=== PATIENT | male | born 1980 | race Caucasian/White ===

== ENCOUNTER → 2018-03-08 | Outpatient (CLI) | payer OTHER ==
--- NOTE | 2018-03-08 17:50 | KCIC ---
THORACIC SPINE 3V, LUMBAR SPINE MIN 4V History: Thoracic spine pain. Bilateral leg numbness and tingling. Possible old T12 fracture. Chronic low back pain.. Comparison: None are available Three-view thoracic The upper vertebral bodies of the thoracic spine are poorly visualized on the lateral view. No evidence of vertebral body height loss. No significant subluxation. No paraspinal soft tissue swelling. Visualized lungs are clear. IMPRESSION: No acute findings at the thoracic spine 5 view lumbar spine There appear to be 5 lumbar type vertebral bodies. Moderate to severe anterior compression fracture of what is probably the L1 vertebral body. No evidence of linear condensation or acute cortical step-off to suggest that this is acute. Other vertebrae appear intact. Disc space narrowing compatible with degenerative spondylosis. No significant spondylolysis. No significant subluxation. IMPRESSION: Moderate to severe anterior compression fracture of L1 vertebral body. This is likely chronic. Electronically signed by: Mehrdad Bryant MD (03/08/2018 5:46 PM) [facility]
== END | disposition home or self-care (01) ==
LOC: KCIC 14:09
PROVIDERS: ATTEND Physician Assistant Medical
DX: S32.018A Other fracture of first lumbar vertebra, initial encounter for closed fracture (principal); X58.XXXA Exposure to other specified factors, initial encounter; Y93.89 Activity, other specified; Y92.89 Other specified places as the place of occurrence of the external cause; Y99.8 Other external cause status; M54.6 Pain in thoracic spine
CPT/HCPCS: 72072; 72110

== ENCOUNTER → 2019-02-09 | Outpatient (CLI) | payer OTHER ==
--- NOTE | 2019-02-09 16:29 | KCIC ---
3 view study of the right knee Clinical indications: Posterior right knee pain after injury. FINDINGS: No acute fracture or dislocation or lytic process is seen. No significant degenerative joint space narrowing or spurring is seen. No erosive arthropathy is evident. Small right knee joint effusion is seen. IMPRESSION: No acute osseous abnormality. Electronically signed by: Jose Alberto Betts MD (02/09/2019 4:26 PM) [facility]
== END | disposition home or self-care (01) ==
LOC: KCIC 15:39
PROVIDERS: ATTEND Physician Assistant Medical
DX: M25.461 Effusion, right knee (principal)
CPT/HCPCS: 73562

== ENCOUNTER → 2019-02-13 | Outpatient (CLI) | payer OTHER ==
--- NOTE | 2019-02-13 14:56 | KCIC ---
MR of the right knee HISTORY: Right knee pain. Possible ACL injury January 2018. Posterior and lateral pain. TECHNIQUE: Routine multiplanar sequences are obtained. FINDINGS: Tear of the posterior horn of the medial meniscus with a degenerative appearance. Tear of the posterior horn of the lateral meniscus. The free margin of the posterior horn is truncated. This could indicate a displaced fragment. The lateral meniscus is incompletely discoid. Tear of the anterior cruciate ligament. Pivot shift bone injuries with small subchondral marrow contusion of the lateral femoral condyle, and small fracture/contusions of the posterior tibial plateaus. Posterior cruciate ligament intact. There is some irregular hypointense signal within the anterior joint, likely represents torn ACL fibers. Less likely this could represent displaced meniscal tissue. Medial collateral ligament is intact. Iliotibial band unremarkable. Fibular collateral ligament, biceps femoris tendon and popliteus tendon are intact. The extensor mechanism is intact. Large joint effusion. Focal, at least 50% deep, chondral defect at the femoral trochlea measuring about 6 mm diameter. Cartilage thinning at the posterior lateral tibial plateau. Chondromalacia at the medial joint compartment. Small Lugo's cyst. Irregular signal identified within the cyst compatible with debris or synovitis, or blood product. There is some disorganized fluid dissecting above below this cyst likely due to a rupture. IMPRESSION: 1. Medial meniscal tear. 2. Lateral meniscal tear. 3. Anterior cruciate ligament tear with Pivot shift bone injuries. 4. Irregular hypointense material within the anterior knee, likely represents torn ACL fibers, but displaced meniscal or chondral fragment could also be considered. 5. Articular cartilage defect at the lower femoral trochlea. 6. Complex Lugo's cyst with evidence of rupture. Electronically signed by: Mehrdad Bryant MD (02/13/2019 2:53 PM) [facility]
== END | disposition home or self-care (01) ==
LOC: KCIC MRI 13:54
PROVIDERS: ATTEND Physician Assistant Medical
DX: S83.241A Other tear of medial meniscus, current injury, right knee, initial encounter (principal); S83.281A Other tear of lateral meniscus, current injury, right knee, initial encounter; S83.511A Sprain of anterior cruciate ligament of right knee, initial encounter; S80.01XA Contusion of right knee, initial encounter; M71.21 Synovial cyst of popliteal space [Baker], right knee; M94.261 Chondromalacia, right knee; M25.461 Effusion, right knee; X58.XXXA Exposure to other specified factors, initial encounter; Y93.89 Activity, other specified; Y92.89 Other specified places as the place of occurrence of the external cause; Y99.8 Other external cause status
CPT/HCPCS: 73721

== ENCOUNTER → 2019-08-03 | Outpatient (CLI) | payer OTHER ==
--- NOTE | 2019-08-03 09:41 | CARD ---
MR#: [id number] Date of Study: 08/03/2019 Ordering Physician: NANCY GAN, Referring Physician: NANCY GAN, Tech: Smitha Goodwin JUAN APPROVED REPORT EXAM: Two-dimensional and M-mode echocardiogram with Doppler and color Doppler. Other Information Quality : Good INDICATION Hypertension/HCVD RISK FACTORS Hypertension 2D DIMENSIONS RVDd2.9 (2.9-3.5cm)Left Atrium(2D)3.6 (1.6-4.0cm) IVSd1.4 (0.7-1.1cm)Aortic Root(2D)3.2 (2.0-3.7cm) LVDd4.7 (3.9-5.9cm)LVOT Diameter2.1 (1.8-2.4cm) PWd1.4 (0.7-1.1cm)LVDs3.0 (2.5-4.0cm) FS (%) 35.8 %SV68.1 ml LVEF(%)60.0 (>50%) Aortic Valve AoV Peak Shimon.112.8cm/sAoV VTI19.4cm AO Peak GR.5.1mmHgLVOT Peak Shimon.86.7cm/s AO Mean GR.3mmHgAVA (VMAX)2.65cm2 BRAN (VTI)2.21cl8FD P 1/2 [id number] Mitral Valve MV E Snlzhvvb36.0cm/sMV DECEL VKSH513ms MV A Ksrszkhn88.4cm/sE/A Ratio1.9 Pulmonary Vein S1 Gyknzbpf93.2cm/sD2 Cabxuujp20.0cm/s LEFT VENTRICLE The left ventricle is normal size. There is mild concentric left ventricular hypertrophy. The left ve ntricular systolic function is normal and the ejection fraction is within normal range. The Ejection Fraction is 60-65%. There is normal LV segmental wall motion. The left ventricular diastolic function and filling is normal for age. RIGHT VENTRICLE The right ventricle is normal size. The right ventricular systolic function is normal. ATRIA The left atrium size is normal. The right atrium size is normal. The interatrial septum is intact wit h no evidence for an atrial septal defect or patent foramen ovale as noted on 2-D or Doppler imaging. AORTIC VALVE The aortic valve is normal in structure and function. Doppler and Color Flow revealed mild aortic reg urgitation. There is no significant aortic valvular stenosis. MITRAL VALVE The mitral valve is normal in structure and function. There is no evidence of mitral valve prolapse. There is no mitral valve stenosis. Doppler and Color-flow revealed trace mitral regurgitation. TRICUSPID VALVE The tricuspid valve is normal in structure and function. Doppler and Color Flow revealed physiologica l tricuspid regurgitation. There is no tricuspid valve stenosis. PULMONIC VALVE The pulmonary valve is normal in structure and function. Doppler and Color Flow revealed mild pulmoni c valvular regurgitation. There is no pulmonic valvular stenosis. GREAT VESSELS The aortic root is normal in size. The ascending aorta is normal in size. The IVC is normal in size a nd collapses >50% with inspiration. PERICARDIAL EFFUSION There is no evidence of significant pericardial effusion. Critical Notification Critical Value: No <Conclusion> The left ventricular systolic function is normal and the ejection fraction is within normal range. Th e Ejection Fraction is 60-65%. There is normal LV segmental wall motion. Doppler and Color Flow revealed mild aortic regurgitation. Doppler and Color Flow revealed mild pulmonic valvular regurgitation. Signed by : Lucian Barnes, Electronically Approved : 08/03/2019 09:40:15
== END | disposition home or self-care (01) ==
LOC: ECHO 07:54
PROVIDERS: ATTEND Internal Medicine Cardiovascular Disease
DX: I08.8 Other rheumatic multiple valve diseases (principal); I11.9 Hypertensive heart disease without heart failure
CPT/HCPCS: 93306

== ENCOUNTER → 2021-11-05 | Outpatient (CLI) | payer OTHER ==
--- NOTE | 2021-11-05 14:27 | KCIC ---
XR FOOT_RIGHT 3 VIEWS DATE: 11/05/2021 1:42 PM INDICATION: Rt. foot pain 4-5 wks. No known specific injury. Pain from mid-distal plantar aspect of foot. COMPARISON: None. FINDINGS: Bones: There is no evidence of acute fracture or dislocation. Joints: The joint spaces are normal. Miscellaneous: None. IMPRESSION: Normal exam Electronically signed by: Johny Farfan MD (11/05/2021 2:25 PM) [id number]
== END ==
LOC: KCIC 13:25
PROVIDERS: ATTEND Physician Assistant Medical
DX: M79.671 Pain in right foot (principal)
CPT/HCPCS: 73630